=== PATIENT | male | born 1945 | race Caucasian/White ===

== ENCOUNTER 2022-02-25 12:01 | Emergency (ER) | payer MEDICARE ==
[2022-02-25] MEDS ORDERED: Sodium Chloride 0.9% 10 ML Syringe FLUSH PRN (12:29)
[2022-02-25] MEDS ORDERED: Acetaminophen 1,000 MG in Premix Bag 1 BAG IV ONE ×2 (12:29→12:45)
[2022-02-25] MEDS ORDERED: Pantoprazole 40 MG Vial IVPUSH ONE (13:07)
[2022-02-25 13:25] LABS: CORONAVIRUS COVID-19 NAA NEGATIVE (NEGATIVE)
[2022-02-25] MEDS ORDERED: Piperacillin/Tazobactam 4.5 GM in Sodium Chloride 0.9% 50 ML IV ONE (13:47)
[2022-02-25 13:52] LABS: ESTIMATED GFR 32 mL/min (>60)
[2022-02-25] MEDS ORDERED: Lactated Ringers 1,000 ML IV ONE ×2 (14:56→17:56)
[2022-02-25] MEDS ORDERED: Piperacillin/Tazobactam/Dext 4.5 GM in Premix Bag 1 BAG IV ONE (15:00)
[2022-02-25] MEDS ORDERED: Albuterol/Ipratropium 3.0-0.5 MG/3 ML Neb Soln NEB ONE (18:05)
[2022-02-25] MEDS ORDERED: Norepinephrine Bit/D5W Premix 4 MG in Premix Bag 1 BAG IV SCH (18:15)
[2022-02-25] MEDS ORDERED: Midazolam 1 MG/ML 5 ML SDV ONE (18:43)
[2022-02-25] MEDS ORDERED: fentaNYL 100 MCG/2 ML SDV ONE (18:43)
[2022-02-25] MEDS ORDERED: Etomidate 2 MG/ML 10 ML SDV IV ONE (19:00)
[2022-02-25] MEDS ORDERED: Succinylcholine 200 MG/10 ML MDV IV ONE (19:00)
[2022-02-25] MEDS ORDERED: Propofol 200 MG/20 ML SDV IVPUSH ONE (19:04)
[2022-02-25] MEDS ORDERED: Dextrose 5% in Water 250 ML ONE (19:18)
[2022-02-25] MEDS ORDERED: EPINEPHrine 1 MG/ML SDV ONE (19:18)
[2022-02-25] MEDS ORDERED: EPINEPHrine 4 MG in Dextrose 5% in Water 250 ML IV SCH ×2 (19:30)
== END 2022-02-25 19:37 ==
LOC: MERGE 12:01 → EDBD 12:01 → JP.ED 12:01
DX: A41.9 Sepsis, unspecified organism (principal); J18.9 Pneumonia, unspecified organism; R65.21 Severe sepsis with septic shock; J96.01 Acute respiratory failure with hypoxia; N17.9 Acute kidney failure, unspecified; E87.1 Hypo-osmolality and hyponatremia; Q60.0 Renal agenesis, unilateral; R41.82 Altered mental status, unspecified; I48.91 Unspecified atrial fibrillation; I45.10 Unspecified right bundle-branch block; Z79.01 Long term (current) use of anticoagulants; Z79.899 Other long term (current) drug therapy; Z20.822 Contact with and (suspected) exposure to COVID-19
CPT/HCPCS: 0241U; 31500; 36415; 36600; 43752; 51702; 71045; 74018; 80053; 81001; 82803; 83605; 84145; 85025; 85610; 86850; 86900; 86901; 87040; 87077; 87186; 93005; 94640; 96365; 96366; 96367; 96375; 99285; C9113; J0131; J0171; J0330; J2543; J3370; J3490; J7050; J7060; J7120; U0002; J7620

== ENCOUNTER 2023-03-23 12:58 | Emergency (ER) | payer MEDICARE ==
[2023-03-23] MEDS ORDERED: Sodium Chloride 0.9% 1,000 ML IV ONE ×3 (13:25→16:34)
[2023-03-23] MEDS ORDERED: cefTRIAXone 1 GM in Sodium Chloride 0.9% 50 ML IV ONE (13:28)
[2023-03-23 13:57] LABS: APPEARANCE,URINE CLOUDY (CLEAR); BILIRUBIN,URINE NEGATIVE (NEGATIVE); COLOR,URINE YELLOW (YELLOW); GLUCOSE,URINE NEGATIVE (NEGATIVE); KETONES,URINE NEGATIVE (NEGATIVE); LEUKOCYTE ESTERASE,URINE LARGE (NEGATIVE); NITRITE,URINE POSITIVE (NEGATIVE); OCCULT BLOOD,URINE MODERATE (NEGATIVE); PH,URINE 5.5 (5.0-8.0); PROTEIN,URINE 100 mg/dL (NEGATIVE); UROBILINOGEN,URINE 0.2 EU/dL (0.2-1.0)
[2023-03-23 14:05] LABS: CORONAVIRUS COVID-19 NAA NEGATIVE (NEGATIVE); INFLUENZA A NAA NEGATIVE (NEGATIVE); INFLUENZA B NAA NEGATIVE (NEGATIVE); RESPIRATORY SYNCYTIAL VIR NAA NEGATIVE (NEGATIVE)
[2023-03-23 14:09] LABS: AMORPHOUS SEDIMENT,URINE FEW; BACTERIA,URINE MODERATE; EPITHELIAL CELLS,URINE FEW; MUCUS,URINE NOT SEEN; RBC,URINE 0-5 (0-5); WBC,URINE >100 (0-5)
[2023-03-23 14:19] LABS: BASOPHILS ABSOLUTE AUTO 0.03 K/uL (0.00-0.10); BASOPHILS PERCENT AUTO 0.1 % (0.1-1.3); HEMATOCRIT 40.8 % (38.4-49.7); HEMOGLOBIN 13.8 g/dL (12.9-16.9); IMMATURE GRAN ABSOLUTE AUTO 0.11 K/uL (0.00-0.23); IMMATURE GRAN PERCENT AUTO 0.5 % (0.0-0.7); LYMPHOCYTES ABSOLUTE AUTO 1.18 K/uL (0.8-3.3); LYMPHOCYTES PERCENT AUTO 5.9 % (11.4-47.7); MEAN CORPUSCULAR HEMOGLOBIN 31.9 pg (31.6-35.5); MEAN CORPUSCULAR HGB CONC 33.8 g/dL (31.6-35.5); MEAN CORPUSCULAR VOLUME 94.4 fL (81.4-99.0); MONOCYTES ABSOLUTE AUTO 0.48 K/uL (0.20-0.90); MONOCYTES PERCENT AUTO 2.4 % (3.3-12.6); NEUTROPHILS PERCENT AUTO 91.1 % (40.0-78.1); PLATELET COUNT,PLT 158 K/uL (130-375); RED BLOOD CELL COUNT 4.32 M/uL (4.14-5.76); WHITE BLOOD CELL COUNT,WBC 20.1 K/uL (3.2-11.0)
[2023-03-23 14:21] LABS: EOSINOPHILS ABSOLUTE AUTO 0.01 K/uL (0.00-0.40)
[2023-03-23 14:25] LABS: BASE EXCESS VENOUS -5.1 mm/L; BICARBONATE,VENOUS 20.2 mmol/L; CARBOXYHEMOGLOBIN 2.2 % (0.0-1.6); METHEMOGLOBIN 0.8 %; O2 SATURATION VENOUS 60.6; OXYHEMOGLOBIN 58.8 %; PCO2 VENOUS 40.6 mm/Hg; PH,VENOUS 7.318 (7.350-7.450); PO2 VENOUS 37.8 mm/Hg; TOTAL HEMOGLOBIN 15.2 g/dL (13.5-18.0)
[2023-03-23 14:51] LABS: A/G RATIO 0.4 (1.2-2.2); ALANINE AMINOTRANSFERASE,ALT 10 U/L (12-78); ALBUMIN 2.5 g/dL (3.4-5.0); ALKALINE PHOSPHATASE 64 U/L (46-116); ASPARTATE AMNIOTRANSFERASE,AST 17 U/L (15-37); BLOOD UREA NITROGEN,BUN 40 mg/dL (7-18); CALCIUM 8.5 mg/dL (8.5-10.1); CARBON DIOXIDE,CO2 20 mmol/L (21-32); CHLORIDE,CL 110 mmol/L (100-108); CREATININE 2.8 mg/dL (0.8-1.3); EST CRCL DRUG DOSING (CG) 23.87 mL/min; ESTIMATED GFR 22 mL/min (>60); GLUCOSE RANDOM 118 mg/dL (74-106); POTASSIUM,K 4.4 mmol/L (3.6-5.2); PROTEIN TOTAL,TP 8.8 g/dL (6.4-8.2); SODIUM,NA 141 mmol/L (140-148)
[2023-03-23 14:53] LABS: ANION GAP 15.4 mmol/L (5.0-14.0)
[2023-03-23] MEDS ORDERED: Sodium Chloride 0.9% 1,000 ML IV SCH ×2 (18:00)
== END 2023-03-23 18:25 ==
LOC: JP.ED 12:58
DX: A41.9 Sepsis, unspecified organism (principal); N39.0 Urinary tract infection, site not specified; I48.91 Unspecified atrial fibrillation; I10 Essential (primary) hypertension; E78.00 Pure hypercholesterolemia, unspecified; Z20.822 Contact with and (suspected) exposure to COVID-19; Z79.02 Long term (current) use of antithrombotics/antiplatelets; Z79.899 Other long term (current) drug therapy
CPT/HCPCS: 0241U; 36415; 51702; 71045; 71250; 80053; 81001; 82803; 83605; 84145; 84484; 85025; 87040; 87077; 87086; 87088; 87184; 87186; 93005; 96361; 96365; 96366; 96367; 99285; J0696; J3370; J3490; J7030; J7050